=== PATIENT | female | born 1970 | race Caucasian/White ===

== ENCOUNTER 2018-04-02 17:19 | Emergency (ER) | payer OTHER ==
[2018-04-02 19:16] VITALS: BP 90/58
--- NOTE | 2018-04-02 19:22 | UC ---
Complaint Female HPI - HPI Summary HPI Summary: Pt presents with concern for vaginal yeast infection. Pt with itching, thick white dc. Pt states itching. Pt has has similar sx in past - dx with yeast. Last > 6 months. Pt states vaginal treatments cause swelling and pain. No concern for STD. No dysuria, hematuria. no concern for Pt's medications reviewed this visit - History Of Current Complaint Chief Complaint: UCGeneralIllness Stated Complaint: PERSONAL Time Seen by Provider: 04/02/18 19:21 Hx Obtained From: Patient Hx Last Menstrual Period: 03/04/18 has had tubal ?: No Onset/Duration: Gradual Onset Timing: Constant Severity Initially: Mild Severity Currently: Mild Pain Intensity: 0 Pain Scale Used: 0-10 Numeric Character: Burning Aggravating Factor(s): Nothing Alleviating Factor(s): Nothing Associated Signs And Symptoms: Positive: Vaginal Discharge - Allergies/Home Medications Allergies/Adverse Reactions: Allergies Allergy/AdvReac Type Severity Reaction Status Date / Time No Known Allergies Allergy Verified 04/02/18 19:16 PMH/Surg Hx/FS Hx/Imm Hx Previously Healthy: Yes - Surgical History Surgical History: Yes Surgery Procedure, Year, and Place: tubal - Family History Known Family History: Positive: Hypertension - Social History Occupation: Employed Full-time Lives: Alone Alcohol Use: None 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 Substance Use Type: None Smoking Status (MU): Former Smoker Review of Systems Constitutional: Negative Skin: Negative Genitourinary: Vaginal/Penile Discharge All Other Systems Reviewed And Are Negative: Yes Physical Exam Triage Information Reviewed: Yes Appearance: Well-Appearing, No Pain Distress, Well-Nourished Vital Signs: Initial Vital Signs Temp 98.5 F 04/02/18 19:08 Pulse 72 04/02/18 19:08 Resp 16 04/02/18 19:08 BP 90/58 04/02/18 19:08 Pulse Ox 99 04/02/18 19:08 Vital Signs Reviewed: Yes Eye Exam: Normal Eyes: Positive: Conjunctiva Clear ENT Exam: Normal ENT: Positive: Normal ENT inspection, Hearing grossly normal, Pharynx normal, TMs normal Dental Exam: Normal Neck exam: Normal Neck: Positive: Supple, Nontender, No Lymphadenopathy Respiratory Exam: Normal Respiratory: Positive: Chest non-tender, Lungs clear, Normal breath sounds, No respiratory distress Cardiovascular Exam: Normal Cardiovascular: Positive: RRR, No Murmur Abdominal Exam: Normal Abdomen Description: Positive: Nontender, No Organomegaly Pelvic Exam: Positive: Bimanual Exam Normal, No Cerv. Motion Tender, No Masses, Discharge - thick, white, no odor, mild diffuse erythema. Negative: Active Bleeding Musculoskeletal Exam: Normal Neurological Exam: Normal Psychological Exam: Normal Skin Exam: Normal Complaint Female Dx - Course Course Of Treatment: Pt with vaginal discharge and itching x 5 days. Pt with a h/o yeast - reports feels similar. discharge white, thick. will give diflucan. cultures pending. pt comfortable with plan - Differential Dx/Diagnosis Provider Diagnoses: vaginal papo infection. vagintis Discharge - Sign-Out/Discharge Documenting (check all that apply): Discharge/Admit/Transfer - Discharge Plan Condition: Stable Disposition: HOME Prescriptions: Fluconazole [Diflucan 150 MG (NF)] 150 mg PO ONCE #2 tab metroNIDAZOLE [Flagyl 500 MG TAB] 500 mg PO BID #20 tab Patient Education Materials: Yeast Infection (ED), Vaginitis (ED) Referrals: Lora CHAMORRO,Jacinto Knight [Primary Care Provider] - Additional Instructions: - Take the one time treatment for yeast infection. If your symptoms persist, okay to take second dose in 5 days - Your sample has been sent for testing. If you need a different treatment, you will receive a call from a care horses or mules teamster - contact your ENGLISH COMPOSITION INSTRUCTOR for follow-up and discuss your increasing urinary incontinence. contact your stud beef cattle farmer specialist or return with any questions or concerns - Billing Disposition and Condition Condition: STABLE Disposition: HOME
--- NOTE | 2018-04-04 07:33 | ED ---
Progress - Progress Note Progress Note: BV and papo found on exam. Pt was prescribed diflucan. I have added flagyl po bid and sent in Rx. Please update patient. Discharge - Sign-Out/Discharge Documenting (check all that apply): Post-Discharge Follow Up - Discharge Plan Condition: Stable Disposition: HOME Prescriptions: Fluconazole [Diflucan 150 MG (NF)] 150 mg PO ONCE #2 tab metroNIDAZOLE [Flagyl 500 MG TAB] 500 mg PO BID #20 tab Patient Education Materials: Yeast Infection (ED), Vaginitis (ED) Referrals: Lora CHAMORRO,Jacinto Knight [Primary Care Provider] - Additional Instructions: - Take the one time treatment for yeast infection. If your symptoms persist, okay to take second dose in 5 days - Your sample has been sent for testing. If you need a different treatment, you will receive a call from a care restaurant team member - contact your ELECTRICAL APPLIANCE PREPARER for follow-up and discuss your increasing urinary incontinence. contact your obstetrics gyn specialist or return with any questions or concerns - Billing Disposition and Condition Condition: STABLE Disposition: HOME
== END 2018-04-02 19:58 | disposition home or self-care (01) ==
LOC: UCCORT 17:19
DX: R69 Illness, unspecified (principal); Z87.891 Personal history of nicotine dependence
CPT/HCPCS: 87480; 87510; 99212; G0463